=== PATIENT | female | born 1970 | race Caucasian/White ===

== ENCOUNTER → 2016-08-21 | Outpatient (CLI) | payer MEDICAID | LOC: FIMAGING 08:20 | PROVIDERS: ATTEND Family Medicine | DX: Z12.31 Encounter for screening mammogram for malignant neoplasm of breast (principal); Z80.3 Family history of malignant neoplasm of breast | CPT/HCPCS: G0202 ==

== ENCOUNTER 2017-03-25 21:26 | Emergency (ER) | payer MEDICAID ==
[2017-03-25 21:39] VITALS: RESP 18; TEMP 98.6
--- NOTE | 2017-03-25 21:50 | CPEKG ---
Heart Rate: 90 RR Interval: 667 P-R Interval: 168 QRSD Interval: 94 QT Interval: 376 QTC Interval: 460 P Creole: 64 QRS Creole: -22 T Wave Creole: 2 EKG Severity - BORDERLINE ECG - EKG Impression: SINUS RHYTHM EKG Impression: BORDERLINE LEFT AXIS DEVIATION EKG Impression: BORDERLINE T ABNORMALITIES, INFERIOR LEADS Electronically Signed By: Valerie Sanchez 25-Mar-2017 22:06:04
[2017-03-25 22:19] LABS: % IMMATURE GRANULYOCYTES 0.2 % (0.0-1.1); ABSOLUTE IMMATURE GRANULOCYTES 0.02 10^3/uL (0.00-0.10); ADD DIFF? NO; ADD MORPH? NO; ADD SCAN? NO; ATYPICAL LYMPHOCYTE FLAG 0 (0-99); FRAGMENT RBC FLAG 0 (0-99); HEMATOCRIT 40.9 % (38.0-47.0); HEMOGLOBIN 13.8 g/dL (12.6-16.3); LEFT SHIFT FLG 0 (0-99); LIPEMIA HEMOLYSIS FLAG 80 (0-99); MEAN CELL HEMOGLOBIN 31.4 pg (27.9-34.1); MEAN CELL HEMOGLOBIN CONCENTR. 33.7 g/dL (32.4-36.7); MEAN PLATELET VOLUME 8.9 fL (8.7-11.7); PLATELET CLUMPS FLAG 10 (0-99); PLATELET COUNT 215 10^3/uL (150-400); RED CELL DISTRIBUTION WIDTH 12.1 % (11.5-15.2)
--- NOTE | 2017-03-25 22:19 | EDPHY ---
H & P Stated Complaint: c/o fluttering sensation in chest x 1 wk, tonight heart skipping/L shoulder Time Seen by Provider: 03/25/17 22:04 HPI/ROS: Chief Complaint: Palpitations HPI: A 46-year-old woman been having the sensation that her heart has been skipping a beat for the last week or so. Tonight she had the same sensation but has some mild discomfort in her left shoulder which felt like a muscle ache. Does not have a history of coronary artery disease and there is no family history of coronary disease at a young age. No family history of sudden cardiac . She has not had any shortness of breath or substernal chest discomfort. No fevers or chills. No cough. No nausea or vomiting. She does state that there is a family history of some thyroid disease but denies any recent weight loss or weight gain. No night sweats, fevers or chills. ROS: 10 point Review of Systems is negative except as noted in the HPI. PMH: Oophorectomy secondary to endometriosis Social History: No smoking, no alcohol, no recreational drug use Family History: non-contributory Physical Exam: Gen: Awake, Alert, No Distress HEENT: Nose: no rhinorrhea Eyes: PERRLA, EOMI Mouth: Moist mucosa Neck: Supple, no JVD Chest: nontender, lungs clear to auscultation Heart: S1, S2 normal, no murmur Abd: Soft, non-tender, no guarding Back: no CVA tenderness, no midline tenderness Ext: no edema, non-tender Skin: no rash Neuro: CN II-XII intact, Sensation grossly intact, Strength 5/5 in bilateral upper and lower extremities - Medical/Surgical History Hx Asthma: No Hx Chronic Respiratory Disease: No Hx Diabetes: No Hx Cardiac Disease: No Hx Renal Disease: No Hx Cirrhosis: No Hx Alcoholism: No Hx HIV/AIDS: No Hx Splenectomy or Spleen Trauma: No Other PMH: ovarian cyst, ovary removed, edometriosis, MENOPAUSAL, MULTIPLE ALLERGIES - Social History Smoking Status: Never smoked Constitutional: Initial Vital Signs Temperature (C) 37 C 03/25/17 21:35 Heart Rate 100 03/25/17 21:35 Respiratory Rate 18 03/25/17 21:35 Blood Pressure 123/87 H 03/25/17 21:35 O2 Sat (%) 99 03/25/17 21:35 O2 Delivery Mode Room Air Allergies/Adverse Reactions: acetaminophen [From Percocet] Allergy (Severe, Verified 03/25/17 21:40) N ANDV oxycodone HCl [From Percocet] Allergy (Severe, Verified 03/25/17 21:40) N ANDV gluten [Gluten] Allergy (Unknown, Verified 03/25/17 21:40) wheat [Wheat] Allergy (Unknown, Verified 03/25/17 21:40) CORN [employer] CORN PRODUCTS Allergy (Severe, Uncoded 07/20/14 22:59) GI Home Medications: Medication Instructions Recorded NO HOME MEDS 06/01/10 Medical Decision Making - Diagnostics EKG Interpretation: ECG time 9:48 p.m., sinus rhythm with a rate of 90, borderline left axis deviation, no acute ST or T-wave changes. Normal intervals, ED Course/Re-evaluation: 46-year-old woman who is having palpitations. She is having infrequent PVCs on her rhythm strip. No acute ECG findings. Will check electrolytes CBC and TSH. Patient does not have any risk factors for coronary artery disease or PE. He is not have any concerning symptoms at this time. Labs including TSH are normal. Patient has continued to have infrequent PVCs. No other evidence of acute cardiac process. Discharge with follow-up with primary care physician, return for any concerns. - Data Points Laboratory Results: Laboratory Results 03/25/17 21:50 03/25/17 21:50 03/25/17 03/25/17 21:50 21:50 WBC 9.36 10^3/uL 10^3/uL (3.80-9.50) RBC 4.40 10^6/uL 10^6/uL (4.18-5.33) Hgb 13.8 g/dL g/dL (12.6-16.3) Hct 40.9 % % (38.0-47.0) MCV 93.0 fL fL (81.5-99.8) MCH 31.4 pg pg (27.9-34.1) MCHC 33.7 g/dL g/dL (32.4-36.7) RDW 12.1 % % (11.5-15.2) Plt Count 215 10^3/uL 10^3/uL (150-400) MPV 8.9 fL fL (8.7-11.7) Neut % (Auto) 46.0 % % (39.3-74.2) Lymph % (Auto) 44.2 % % (15.0-45.0) [place] % (Auto) 7.5 % % (4.5-13.0) Eos % (Auto) 1.2 % % (0.6-7.6) Baso % (Auto) 0.9 % % (0.3-1.7) Nucleat RBC Rel Count 0.0 % % (0.0-0.2) Absolute Neuts (auto) 4.31 10^3/uL 10^3/uL (1.70-6.50) Absolute Lymphs (auto) 4.14 10^3/uL H 10^3/uL (1.00-3.00) Absolute Monos (auto) 0.70 10^3/uL 10^3/uL (0.30-0.80) Absolute Eos (auto) 0.11 10^3/uL 10^3/uL (0.03-0.40) Absolute Basos (auto) 0.08 10^3/uL 10^3/uL (0.02-0.10) Absolute Nucleated RBC 0.00 10^3/uL 10^3/uL (0-0.01) Immature Gran % 0.2 % % (0.0-1.1) Immature Gran # 0.02 10^3/uL 10^3/uL (0.00-0.10) Sodium 141 mEq/L mEq/L (134-144) Potassium 3.6 mEq/L mEq/L (3.5-5.2) Chloride 103 mEq/L mEq/L (97-110) Carbon Dioxide 26 mEq/l mEq/l (22-31) Anion Gap 12 mEq/L mEq/L (8-16) BUN 16 mg/dL mg/dL (7-23) Creatinine 0.9 mg/dL mg/dL (0.6-1.0) Estimated GFR > 60 Glucose 107 mg/dL H mg/dL (70-100) Calcium 9.6 mg/dL mg/dL (8.5-10.4) TSH 3.060 uIU/mL uIU/mL (0.465-4.680) Departure - Departure Disposition: Home, Routine, Self-Care Clinical Impression: PVC (premature ventricular contraction) Condition: Good Instructions: Premature Ventricular Contractions (ED) Additional Instructions: Follow up with her primary care physician in 3-4 days for further evaluation. Return to the emergency department for worsening chest pain, shortness of breath , worsening palpitations, fevers or chills, or any other concerns. Referrals: Brian Sewell [Primary Care Provider] - As per Instructions
[2017-03-25 22:27] LABS: ANION GAP 12 mEq/L (8-16); CALCIUM 9.6 mg/dL (8.5-10.4); CARBON DIOXIDE 26 mEq/l (22-31); CHLORIDE 103 mEq/L (97-110); CREATININE 0.9 mg/dL (0.6-1.0); GLOMERULAR FILTRATION RATE > 60; GLUCOSE 107 mg/dL (70-100); POTASSIUM 3.6 mEq/L (3.5-5.2); SODIUM 141 mEq/L (134-144)
[2017-03-25 23:18] VITALS: BP 112/82; PULSE 70; O2SAT 96
== END 2017-03-25 23:16 | disposition home or self-care (01) ==
DX: I49.3 Ventricular premature depolarization (principal)